=== PATIENT | male | born 1955 | race Caucasian/White ===

== ENCOUNTER 2020-01-03 06:30 | Observation (INO) ==
[~2020-01-03 06:30] MED LIST: *HR* OxyCODONE ER (12 HR) 10 MG TABLET PO ONE
[2020-01-03] MEDS ORDERED: *HR* OxyCODONE Immed Rel 5 MG TABLET PO PRN (06:56)
[2020-01-03] MEDS ORDERED: *HR* Labetalol 20 MG/4 ML SYRINGE IVP PRN (06:56)
[2020-01-03] MEDS ORDERED: *HR* Promethazine 25 MG/ML VIAL IVP PRN ×2 (06:56→11:26)
[2020-01-03] MEDS ORDERED: Ondansetron 4 MG/2 ML VIAL IVP PRN (06:56)
[2020-01-03] MEDS ORDERED: *HR* Midazolam HCl 2 MG/2 ML VIAL ONE (07:09)
[2020-01-03] MEDS ORDERED: *HR* FentaNYL (PF) 100 MCG/2 ML VIAL ONE (07:09)
[2020-01-03] MEDS ORDERED: Lidocaine -MPF 2% 2 ML VIAL ONE ×2 (07:16→07:39)
[2020-01-03] MEDS ORDERED: Ethanol\\Acetic Acid\\Na Ace\\Ben 1,000 ML IRRIG.SOLN IR ONE (07:28)
[2020-01-03] MEDS ORDERED: *HR* Propofol 200 MG/20 ML VIAL IVP ONE (07:38)
[2020-01-03] MEDS ORDERED: *HR* Succinylcholine 200 MG/10 ML VIAL IVP ONE (07:40)
[2020-01-03] MEDS ORDERED: Clindamycin 900 MG/50 ML 900 MG/50 ML IV.SOLN IVPB ONE (07:45)
[2020-01-03] MEDS ORDERED: Ringers Solution, Lactated 1,000 ML IVC SCH ×2 (07:45→11:26)
[2020-01-03] MEDS ORDERED: Gabapentin 300 MG CAPSULE PO ONE (07:50)
[2020-01-03] MEDS ORDERED: Celecoxib 200 MG CAPSULE PO ONE (07:50)
[2020-01-03] MEDS ORDERED: Tranexamic Acid 1,000 MG/10 ML VIAL ONE (09:09)
[2020-01-03] MEDS ORDERED: *HR* PHENYLEPHRINE 1,000 MCG/10 ML SYRINGE IVP ONE (09:16)
[2020-01-03] MEDS ORDERED: Dexamethasone 4 MG/ML VIAL ONE (09:18)
[2020-01-03] MEDS ORDERED: Ondansetron 4 MG/2 ML VIAL ONE (09:18)
[2020-01-03] MEDS ORDERED: *HR* HYDROMORPHONE 2 MG/ML VIAL ONE (09:20)
[2020-01-03] MEDS ORDERED: Vancomycin 1,000 MG VIAL ONE (09:21)
[2020-01-03] MEDS: *HR* HYDROmorphone (PF) 1 MG/ML SYRINGE IVP PRN ×3 (10:33→11:02)
[2020-01-03 11:24] LABS: Hematocrit 41.2 % (37.5-50.1)
[2020-01-03] MEDS ORDERED: Sennosides 8.6 MG TABLET PO PRN (11:26)
[2020-01-03] MEDS ORDERED: Dextrose Gel 15 GM/37.5 ML TUBE PO PRN ×2 (11:26)
[2020-01-03] MEDS ORDERED: D5% in Water 1,000 ML IVC PRN (11:26)
[2020-01-03] MEDS ORDERED: traZODone 50 MG TABLET PO PRN (11:26)
[2020-01-03] MEDS ORDERED: Naloxone 0.4 MG/ML INJ IVP PRN (11:26)
[2020-01-03] MEDS ORDERED: MOM Conc 10 ML UD.LIQ PO PRN (11:26)
[2020-01-03] MEDS ORDERED: ALPRAZolam 0.5 MG TABLET PO PRN (11:26)
[2020-01-03] MEDS ORDERED: *HR* Dextrose 50 % in Water (Syg) 50 ML SYRINGE IVP PRN (11:26)
[2020-01-03] MEDS: Fenofibrate 54 MG TABLET PO SCH (12:13)
[2020-01-03] MEDS: lamoTRIgine 100 MG TABLET PO SCH ×2 (12:14→21:46)
[2020-01-03] MEDS: cloNIDine HCL 0.1 MG TABLET PO SCH ×2 (12:15→21:47)
[2020-01-03] MEDS: amLODIPine 5 MG TABLET PO SCH (12:15)
[2020-01-03] MEDS: Multivit/Ca/Min/Fe/FA 1 TAB TABLET PO SCH (12:16)
[2020-01-03] MEDS: *HR* Metformin 500 MG TABLET PO SCH ×2 (12:17→17:02)
[2020-01-03] MEDS: *HR* OxyCODONE Immed Rel 5 MG TABLET PO PRN ×3 (12:18→21:47)
[2020-01-03] MEDS: *HR* Glimepiride 2 MG TABLET PO SCH (12:19)
[2020-01-03] MEDS: Ascorbic Acid 500 MG TABLET PO SCH ×2 (12:19→17:03)
[2020-01-03] MEDS: lisinopriL 20 MG TABLET PO SCH (12:20)
[2020-01-03] MEDS: Diclofenac Sodium (24 HR) 100 MG TABLET PO SCH ×2 (12:20→12:50)
[2020-01-03] MEDS: TRIAMTERENE PO SCH (12:21)
[2020-01-03] MEDS: HYDROCHLOROTHIAZID PO SCH (12:21)
[2020-01-03] MEDS: SEMAGLUTIDE 7 MG PO SCH (12:21)
[2020-01-03] MEDS: Insulin LISPRO 300 UNITS/3 ML VIAL SQ SCH ×3 (12:22→21:47)
[2020-01-03] MEDS: HYDROcodone BIT/Homatropine 5 MG TABLET PO PRN (14:01)
[2020-01-03] MEDS: Gabapentin 400 MG CAPSULE PO SCH ×2 (15:14→21:46)
[2020-01-03] MEDS: Clindamycin 900 MG/50 ML 900 MG/50 ML IV.SOLN IVPB SCH (15:17)
[2020-01-04] MEDS: Clindamycin 900 MG/50 ML 900 MG/50 ML IV.SOLN IVPB SCH (01:13)
[2020-01-04] MEDS: HYDROcodone BIT/Homatropine 5 MG TABLET PO PRN ×2 (01:20→06:39)
[2020-01-04] MEDS: Ondansetron 4 MG/2 ML VIAL IVP PRN ×2 (01:24→19:13)
[2020-01-04] MEDS: *HR* OxyCODONE Immed Rel 5 MG TABLET PO PRN ×4 (03:20→20:58)
[2020-01-04 07:29] LABS: Basophils % 0.1 %; Eosinophils # 0.1 K/mcL (0.0-0.6); Hematocrit 31.8 % (37.5-50.1); Hemoglobin 10.3 g/dL (12.9-16.9); Immature Granulocytes % 0.6 % (0-4); Lymphocytes # 1.6 K/mcL (0.6-4.6); Mean Corpuscular HGB Conc 32.4 g/dL (31.6-35.5); Mean Corpuscular Hemoglobin 29.9 pg (28.0-33.3); Mean Corpuscular Volume 92.2 fL (83.0-100.0); Mean Platelet Volume 10.1 fL (9.4-12.4); Monocytes # 1.2 K/mcL (0.0-1.3); Monocytes % 13.2 %; Platelet Count 319 K/mcL (140-400); Red Blood Count 3.45 M/mcL (4.19-5.50); Red Cell Distribution Width 13.2 % (11.5-14.5); Segmented Neutrophils % 67.1 %
[2020-01-04 07:42] LABS: Calcium 9.1 mg/dL (8.6-10.3)
[2020-01-04] MEDS: Gabapentin 400 MG CAPSULE PO SCH ×3 (08:47→20:56)
[2020-01-04] MEDS: Aspirin Enteric Coated 81 MG Tablet PO SCH (08:47)
[2020-01-04] MEDS: amLODIPine 5 MG TABLET PO SCH (08:48)
[2020-01-04] MEDS: lamoTRIgine 100 MG TABLET PO SCH ×2 (08:49→20:56)
[2020-01-04] MEDS: lisinopriL 20 MG TABLET PO SCH (08:50)
[2020-01-04] MEDS: *HR* Glimepiride 2 MG TABLET PO SCH (08:51)
[2020-01-04] MEDS: Ascorbic Acid 500 MG TABLET PO SCH ×2 (08:51→16:09)
[2020-01-04] MEDS: Diclofenac Sodium (24 HR) 100 MG TABLET PO SCH (08:53)
[2020-01-04] MEDS: Multivit/Ca/Min/Fe/FA 1 TAB TABLET PO SCH (08:54)
[2020-01-04] MEDS: cloNIDine HCL 0.1 MG TABLET PO SCH ×2 (08:54→20:56)
[2020-01-04] MEDS: Fenofibrate 54 MG TABLET PO SCH (08:55)
[2020-01-04] MEDS: *HR* Metformin 500 MG TABLET PO SCH (08:55)
[2020-01-04] MEDS: TRIAMTERENE PO SCH (08:56)
[2020-01-04] MEDS: Insulin LISPRO 300 UNITS/3 ML VIAL SQ SCH ×4 (08:56→20:49)
[2020-01-04] MEDS: SEMAGLUTIDE 7 MG PO SCH (08:56)
[2020-01-04] MEDS: HYDROCHLOROTHIAZID PO SCH (08:56)
[2020-01-04] MEDS ORDERED: Ringers Solution, Lactated 1,000 ML IVC ONE (09:09)
[2020-01-04] MEDS ORDERED: Ringers Solution, Lactated 1,000 ML ONE ×2 (09:26→12:05)
[2020-01-04] MEDS: Ringers Solution, Lactated 1,000 ML IVC SCH ×2 (12:07→22:46)
[2020-01-04] MEDS ORDERED: Nicotine 2 MG GUM BC PRN (13:54)
[2020-01-04 16:25] LABS: Hematocrit 30.7 % (37.5-50.1); Hemoglobin 10.1 g/dL (12.9-16.9)
[2020-01-04 16:39] LABS: Calcium 9.2 mg/dL (8.6-10.3); Potassium 4.7 mEq/L (3.5-5.1)
[2020-01-04] MEDS ORDERED: *HR* Metformin 500 MG TABLET PO SCH (17:00)
[2020-01-04] MEDS ORDERED: Levalbuterol Neb 1.25 MG/3 ML IH ONE (19:51)
[2020-01-04 20:30] LABS: Sodium, Urine 19.1 mEq/L
[2020-01-04 21:17] LABS: Bilirubin,Urine Negative (Negative); Blood,Urine Trace-intact (Negative); Clarity,Urine Clear (Clear); Color,Urine Yellow (Yellow); Glucose,Urine (UA) Normal (Normal); Ketones,Urine Negative (Negative); Leukocyte Esterase,Urine Negative (Negative); Nitrite,Urine Negative (Negative); Protein,Urine Negative (Neg-Trace); Urobilinogen,Urine Normal (Normal)
[2020-01-04 21:59] LABS: Bacteria,Urine None Seen per hpf (None-Few); Hyaline Casts,Urine Few per lpf (None-Few); RBC,Urine 0-3 per hpf (0-3); Squamous Epithelial Cell,Urine Few per lpf (None-Few); WBC,Urine 0-3 per hpf (0-3)
[2020-01-05 04:33] LABS: Basophils % 0.2 %; Eosinophils # 0.2 K/mcL (0.0-0.6); Eosinophils % 1.7 %; Hemoglobin 9.8 g/dL (12.9-16.9); Immature Granulocytes % 0.6 % (0-4); Lymphocytes # 1.3 K/mcL (0.6-4.6); Lymphocytes % 10.5 %; Mean Corpuscular HGB Conc 33.8 g/dL (31.6-35.5); Mean Corpuscular Hemoglobin 30.7 pg (28.0-33.3); Mean Corpuscular Volume 90.9 fL (83.0-100.0); Mean Platelet Volume 10.3 fL (9.4-12.4); Monocytes % 8.2 %; Platelet Count 284 K/mcL (140-400); Red Blood Count 3.19 M/mcL (4.19-5.50); Red Cell Distribution Width 12.9 % (11.5-14.5); Segmented Neutrophils % 78.8 %; White Blood Count 12.6 K/mcL (4.3-11.1)
[2020-01-05 04:52] LABS: Calcium 9.3 mg/dL (8.6-10.3); Potassium 4.9 mEq/L (3.5-5.1)
[2020-01-05] MEDS: amLODIPine 5 MG TABLET PO SCH (07:43)
[2020-01-05] MEDS: Gabapentin 400 MG CAPSULE PO SCH (07:43)
[2020-01-05] MEDS: Aspirin Enteric Coated 81 MG Tablet PO SCH (07:43)
[2020-01-05] MEDS: lamoTRIgine 100 MG TABLET PO SCH (07:43)
[2020-01-05] MEDS: Fenofibrate 54 MG TABLET PO SCH (07:45)
[2020-01-05] MEDS: Multivit/Ca/Min/Fe/FA 1 TAB TABLET PO SCH (07:45)
[2020-01-05] MEDS: Ascorbic Acid 500 MG TABLET PO SCH (07:45)
[2020-01-05] MEDS: cloNIDine HCL 0.1 MG TABLET PO SCH (07:45)
[2020-01-05] MEDS: Ringers Solution, Lactated 1,000 ML IVC SCH (07:46)
[2020-01-05 07:51] VITALS: BP 103/65
[2020-01-05] MEDS: Insulin LISPRO 300 UNITS/3 ML VIAL SQ SCH ×2 (07:53→12:43)
[2020-01-05 10:58] LABS: Potassium 4.6 mEq/L (3.5-5.1)
[2020-01-05] MEDS: HYDROCHLOROTHIAZID PO SCH (12:44)
[2020-01-05] MEDS: SEMAGLUTIDE 7 MG PO SCH (12:44)
[2020-01-05] MEDS: TRIAMTERENE PO SCH (12:44)
[2020-01-05] MEDS: HYDROcodone BIT/Homatropine 5 MG TABLET PO PRN (13:18)
== END 2020-01-05 14:00 | disposition home or self-care (01) ==
LOC: SAMDAY 06:30 → 3NENU 06:30
PROVIDERS: ADMIT Orthopaedic Surgery; ATTEND Orthopaedic Surgery